=== PATIENT | male | born 1980 | race Caucasian/White ===

== ENCOUNTER 2016-05-14 04:59 | Emergency (ER) | payer MEDICAID, OTHER ==
[2016-05-14] MEDS ORDERED: KETOROLAC 60 MG/2 ML VIAL IM ONE (05:55)
[2016-05-14] MEDS ORDERED: ORPHENADRINE 60 MG/2 ML AMP ONE (05:56)
[2016-05-14] MEDS ORDERED: SODIUM CHLORIDE 0.9% 500 ML IV ONE (13:57)
[2016-05-14] MEDS ORDERED: DEXTROSE 5% 250 ML IV ONE (13:57)
[2016-05-14] MEDS ORDERED: NOREPINEPHRINE 1 MG/ML 4 ML VIAL IV ONE (13:57)
== END 2016-05-14 07:10 | disposition home or self-care (01) ==
LOC: ER 04:59
DX: S39.012A Strain of muscle, fascia and tendon of lower back, initial encounter (principal); X50.0XXA Overexertion from strenuous movement or load, initial encounter; Y93.B9 Activity, other involving muscle strengthening exercises
CPT/HCPCS: 96372